=== PATIENT | male | born 1935 | race Caucasian/White ===

== ENCOUNTER 2021-03-01 09:58 | Emergency (ER) | payer OTHER ==
--- OUTSIDE RECORDS SUMMARY | 2021-03-01 10:01 | XMS REPORT | Clinical Summary ---
:1935 Author Organization [facility] Address [address] [place] [address] Care Team Providers Name Role Phone Matthew Chaves MD Primary Care Provider Venkatesh Sotelo MD Unavailable Unavailable Fly Roberts NP Unavailable MD Saurav Unavailable Ariel Burch MD Unavailable Matthew Chaves MD Unavailable Monty Scott Unavailable MD Wilman External Follow Up C Allergies Active Allergy Reactions Severity Noted Date Comments Iodinated Contrast Media 12/11/2015 Iodine 03/18/2016 Medications Medication Sig Dispensed Refills Start End Date Status Date aspirin 81 mg Chew 81 mg 0 Activ e chewable tablet daily. atorvastatin calcium Take 140 mg 0 Active (ATORVASTATIN ORAL) by mouth daily. clopidogrel (PLAVIX) Take 75 mg by 0 Active 75 mg tablet mouth daily. fenofibrate Take 145 mg 0 Active nanocrystallized by mouth (TRICOR) 145 mg daily. tablet metoprolol succinate Take 50 mg by 0 Active (TOPROL XL) 50 mg 24 mouth daily. hr tablet methimazole Take 1 tablet 3 Acti ve (TAPAZOLE) 5 mg by mouth 6 tablet daily. pantoprazole TAKE 1 TABLET 3 Act divya (PROTONIX) 40 mg EC BY MOUTH 7 tablet EVERY DAY TRAMADOL HCL Take by 0 Active (TRAMADOL ORAL) mouth. mupirocin (BACTROBAN) Apply 22 g 1 Active 2% topically to 0 ointmentIndications: affected Basal cell carcinoma area(s) twice of nose daily. mupirocin (BACTROBAN) Apply 22 g 1 Active 2% topically to 1 ointmentIndications: affected Basal cell carcinoma area(s) twice of cheek daily. MELATONIN ORAL Take by mouth 0 06/08/20 D iscontinued at bedtime. 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 Encounters Date Type Specialty Care Team Description 09/28/2020 Procedure visit Chance Alexis c arcinoma MD Maryse of cheek 09/28/2020 Travel 09/25/2020 Telephone Stacy Perez RN 09/25/2020 Orders Only Stacy Perez Basal cell car cinoma RIC Meeks of cheek (Prima ry Dx) 09/19/2020 Orders Only Infectious Diseases Shandra Kathleen, SARS -CoV-2 MD vaccination 09/15/2020 Office Visit Ramon Stovall Actinic keratos is (Primary Dx); MD Maryse Basal cell carc inoma of nose; Neoplasm of unc ertain behavior of other specified site 09/15/2020 Travel 06/16/2020 Clinical Support Ramon Stovall Basal cell carcinoma MD Maryse of nose 06/16/2020 Travel 06/08/2020 Procedure visit Ramon Stovall, Neoplasm of uncertain behavior, site unspecified; MD Maryse Basal cell carc inoma of nose 06/08/2020 Travel 06/05/2020 Clinical Support Infectious Diseases Papito Stovall for observation for other suspected exposure to biological agent ruled out (Primary Dx); MD Maryse Basal cell carcinoma of nose Cherry Castro MA 06/05/2020 Travel 05/25/2020 Telephone Stacy Perez RN 05/24/2020 Telephone Stacy Perez RN 05/11/2020 Orders Only Stacy Perez Basal cell car cinoma RIC Meeks of nose (Primar y Dx) 05/04/2020 Telephone Stacy Perez RN 04/27/2020 Lab Requisition Forest Meredith MD Howard, Martin L, MD 04/24/2020 Orders Only Stacy Perez Neoplasm of un certain RIC Meeks behavior, site unspecified (Pr imary Dx) 04/24/2020 Orders Only Sybil Lopez RN after 03/01/2020 Medical History Medical History Date Comments Basal cell carcinoma of scalp 02/2013 Social History Tobacco Use Types Packs/Day Years Used Date Former Smoker Quit: 1962 Smokeless Tobacco: Never Used Alcohol Use Standard Drinks/Week Comments No 0 (1 standard drink = 0.6 oz pure alcoho l) Sex Assigned at Date Recorded Not on file Job Start Date Occupation Industry Not on file Not on file Not on file Last Filed Vital Signs Vital Sign Reading Time Taken Comments Blood Pressure 169/84 09/28/2020 2:04 PM CDT Pulse 68 09/28/2020 2:04 PM CDT Temperature 36.4 C (97.5 F) 09/28/2020 2:04 PM CDT Respiratory Rate 18 09/28/2020 2:04 PM CDT Oxygen Saturation 96% 09/28/2020 2:04 PM CDT Inhaled Oxygen Concentration - - Weight - - Height - - Body Mass Index - - Plan of Treatment Date Type Specialty Care Team Description 04/04/2021 Office Visit Ashlyn Alexis MD [address], [place] [address] [phone] Procedures Procedure Name Priority Date/Time Associated Comments Diagnosis PATHOLOGY BIOPSY Routine 09/15/2020 12:10 Basal cell Results for this INTERPRETATION PM [employer]GE [employer] carcinoma of nos e procedure are in Neoplasm of the results uncertain behavior section. of other specified site COVID-19 (SARS-COV-2) Routine 06/05/2020 11:50 Encounter for R esults for this PCR-ASYMPTOMATIC [facility] AM [employer] observation for aleida alberts are in other suspected the results exposure to section. biological agent ruled out PATHOLOGY OUTSIDE Routine 04/14/2020 Results fo r this INTERPRETATION procedure are in the results section. after 03/01/2020 Results Pathology Biopsy Interpretation (09/15/2020 12:10 PM BRIDGE [employer]ER) Pathologist Sig nature Submitted Clinical 4 mm papule right cheek [facility] History Diagnosis A: Right cheek, skin shave: [facility] Electronically signed BASAL CELL CARCINOMA, NODULA R PATTERN WITH FOCAL SQUAMOUS DIFFERENTIATION, PRESENT AT TISSUE EDGES. by Prasanna Silva MD on CAT/PG 09/18/2020 at 11 :35 AM Gross Description A: [facility] Skin, 4 mm papule right edwin k: Consists of a skin shave that is 0.6 x 0.3 cm, no lesion is grossly identified, inked blue and bisected, entirely submitted in A1. XZ Disclaimer "Some tests reported [facility] here may have been developed and performance characteristics determined by [facility]. These tests have not been specifically cleared or approved by the U.S. Food and Drug Administration. If applicable, controls were reviewed and showed appropriate reactivity." Specimen Tissue - Skin Performing Organization Address City/State/ZIP Code Phon e Number [facility] [place] [address] [address] COVID-19 (SARS-CoV-2) PCR-Asymptomatic [facility] (06/05/2020 11:50 AM BRIDGE ATT[employer]ER) COVID19 (SARS Not Detected Not Detected [facility] CoV-2) Result Comment: [facility] CENTER This test is a qualitative r everse-transcriptase polymerase chain reaction (RT- PCR) developed for the Linda [employer]SHV[employer] system and intended for the detection of SARS CoV-2 RNA in human nasopharyngeal specimens from patients who meet COVID-19 clinical and/or epidemiological crite pepito. This assay has been approved by the FDA for use only under Emergency Use Authorization (EUA) in laboratories that have been CLIA-certified to perform moderate-complexity and high-complexity tests. The performance characteristics of this assa y were verified by the Microbiology Laboratory at [facility], CLIA Accreditation #: [id number] and CAP Accreditation #: [id number]. Results must be interpreted within the context of all relevant clinical and laboratory findings and shou ld not form the sole basis for a diagnosis or treatment decision. "Presumptive Positive" resul ts are due to partial amplification of SARS-CoV-2 targets and indicates low amounts of virus present in the specimen at or near the limit of detection. Regardless, individuals with "Presumptive Positive" results should be managed per institutional gu idelines as individuals positive for SARS-CoV-2 virus, including use of appropriate infection control protocols. Internal controls are includ ed to assess for possible amplification inhibitors. If inhibition is detected, testing is repeated and if inhibition is confirmed the specimen is resulted as "Invalid". When an "Invalid" result occur, it is recommended to wait 3 days before submitting a new specimen for amber ting if clinically indicated. COVID19 SARS CHIEF OF STAFF DOCTOR Swab [facility] Source CANCER CENTER COVID19 SARS Pre-Out of OR [facility] Indication Procedure CANCER CENTER Specimen Nasopharyngeal Swab Performing Organization Address City/State/ZIP Code Phon e Number [facility]CER Unless otherwise noted, [place] [address] [place] all lab tests performed by: Division of Pathology and Laboratory Medicine [address] [place] [address] Pathology Outside Interpretation (04/14/2020) Materials Accession#, Stained, Block, Unstained Collected Receiv ed [facility] Received A. [id number], 11 SS, 0 BLOCK, 0 USS B. [id number], 0 SS, 1 BLOCK, 0 USS 04/14/2020 04/14/2020 04/28/2020 05/02/2020 Diagnosis A. Eleven outside slides and one paraffin block ([id number], 2xH&E: A1, 9xIHC: p63, SOX10, CK AE1/AE3, CKHMW, CK7, RCC1, PAX8, CD10 , collected on 04/14/2020) Nasal dorsum, skin shave: [facility] Idania ctronically signed by Tera pearson CONSISTENT WITH BASAL CELL C ARCINOMA WITH CLEAR CELL FEATURES, PRESENT AT TISSUE EDGE Teto Silva MD on Associated actinic keratosis, present at tissue edges. 05/08/2020 at 10:35 See comment AMPreliminary r esult electronically CAT/PG signed by Tera Silva MD on 05/01/2020 at 5:52 PM Comment A. Sections show a nested pr oliferation of clear cells demonstrating moderate atypia and scattered mitotic figures with overlying epidermal ulceration. An associated actinic keratosis is present. The garcía [facility] bmitted immunohistochemical studies, reviewed here, show that lesional cells are positive for p63, CKAE1/AE3, and CKHMW and negative for CK20, CK7, SOX10, RCC, PAX8, and CD10. Additional materials were re quested to perform immunohistochemical studies. The tumor cells are positive for BerEp4, focally positive for POLLY, and negative for adipophilin and CEA. The overall findings are interpreted as consisten t with basal cell carcinoma with clear cell change. This case was studied and di scussed at the dermatopathology faculty conference. Acid Purification Equipment Operator(s) VGP, JLC, DI, PN, PPA [facility] Disclaimer "Some tests reported here [facility] may have been developed and performance characteristics determined by [facility]. These tests have not been specifically cleared or approved by the U.S. Food and Drug Administration. If applicable, controls were reviewed and showed appropriate reactivity." Specimen Tissue Tissue Performing Organization Address City/State/ZIP Code Phon e Number [facility] [place] [address] [address] after 03/01/2020 Insurance Payer Benefit Plan / Subscriber ID Effective Dates Phone Addre ss Type Group AETNA MEDICARE AETNA MEDICARE [id number] 2013-Present Medicare PPO
--- OUTSIDE RECORDS SUMMARY | 2021-03-01 10:02 | XMS REPORT | Continuity of Care Document ---
:1935 Author Organization [facility] t Address [address] [place] [place] [address] Care Team Providers Name Role Phone [phone] Primary Care Physician Unavailable SYSTEM, NOT IN Attending Clinician Unavailable Caitlyn Huston MD Attending Clinician SCOT Attending Clinician Unavailable Scot LEWIS Attending Clinician Constantino Padilla RN Attending Clinician Unavailable Yashira LEWIS, S. Attending Clinician Hever LEWIS Attending Clinician Matthew THOMSON Attending Clinician Unavailable Monty Meredith MD Attending Clinician Christ Busby MD Attending Clinician Beatriz Unger RN Attending Clinician Unavailable Payers Payer Name Policy Type Policy Effective Date Expiration Date Sour ce Number AETNA MEDICAREAETNA [id number] 2013 [place] MEDICARE HMO/PPO 00:00:00 [facility] [id number] AETNA MEDICARE PPO [id number] 2013 00:00:00 Problems Condition Condition Condition Status Onset Resolution Last Treating Co mments Source Name Details Category Date Date Treatment Clinician Date Stable Stable Disease Active [facility] angina angina 7-12 st 00:00: Hospita 00 l 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 0-17 st nodules nodules 00:00: Hospita 00 l Graves' Graves' Disease Active 2015-07 [facility] disease disease 0-06 st 00:00: Hospita 00 l Hyperlipid Hyperlipid Disease Active 2015-07 M ethodi emia emia 006 st 00:00: Hospita 00 l Erythrocyt Erythrocyt Disease Active 2015-07 M ethodi osis osis 006 st 00:00: Hospita 00 l Coronary Coronary Disease Active 2015-07 [facility] di artery artery 0-06 st disease disease 00:00: Hospita involving involving [place] coronary coronary artery artery Hypertensi Hypertensi Disease Active 2015-07 M ethodi on on 006 st 00:00: Hospita 00 l Basal cell Basal cell Disease Active M D carcinoma carcinoma 9-12 S[facility] of skin of of skin of 00:00: n scalp scalp 00 Seborrheic Seborrheic Disease Active 2013-07 M D keratosis keratosis 0-13 Sg rso 00:00: n 00 Actinic Actinic Disease Active 2013-07 MD keratosis keratosis 0-13 Sg rso 00:00: n 00 Basal cell Basal cell Disease Active M D carcinoma carcinoma 7-23 [facility] of ear of ear 00:00: n 00 GERD GERD Disease Active Method[facility] (gastroeso (gastroeso st phageal phageal Hospita reflux reflux l disease) disease) Diverticul Diverticul Disease Active M ethodi osis osis st Hospita l Dysphagia Dysphagia Disease Active Met hodi [facility]ospita l Colon Colon Disease Active [facility] polyps polyps st Hospita l Family Family Disease Active Methodi history of history of st colon colon Hospita cancer cancer l Stricture Stricture Disease Active Met hodi esophagus esophagus st Hospita l Allergies, Adverse Reactions, Alerts Allergy Allergy Status Severity Reaction(s) Onset Inactive Treating Comm ents Source Name Type Date Date Clinician iodine DA Active CO [facility] 3[facility]12 [place] 00[facility] 00 dic Hospita l iodine DA Active CO 2017-07 [facility] 0-29 [place] 00:[facility]ope 00 dic [facility]ospita l iodine DA Active CO [facility] 3- [place] 00:00: Orthope 00 dic Hospita l Iodine Propensi Active Methodi ty to [address] adverse 00:00: Hospita reaction 00 l s to drug Family History Family Member Diagnosis Comments Start Date Stop Date Source Natural father Lung cancer [facility] Natural father Other [facility] Natural mother Colon cancer [facility] Natural mother Heart attack [facility] Social History Social Habit Start Date Stop Date Quantity Comments Source History of Current smoker MD Jennifer soliman tobacco use Tobacco use and 2018-01-15 2018-01-15 Former user [facility] t exposure 00:00:00 00:00:00 Hospital Alcohol intake 2018-01-15 2018-01-15 Current [facility] 00:00:00 00:00:00 non-drinker of Hospital alcohol (finding) Sex Ass[birth year] At [birth year] [facility] 00:00:00 00:00:00 [facility] Smoking Status Start Date Stop Date Source Former smoker 2018-01-15 00:00:00 2018-01-15 00:00:00 [facility] Medications Ordered Filled Start Stop Current Ordering Indication Dosage Frequency Signature Comments Components Source Medication Medication Date Date Medication? Clinician (SIG) Name Name pantoprazol Yes [id number] TAKE 1 Methodi e 7-[address] (PROTONIX) 00:00: MOUTH Hospit a 40 MG EC 00 EVERY DAY l tablet aspirin 81 Yes 81mg Chew 81 mg M D mg chewable 3-25 daily. Joaquim o tablet 16:17: n 32 atorvastati Yes 140mg Take 140 M D n calcium 3-25 mg by Anderso (ATORVASTAT 16:17: mouth n IN ORAL) 32 daily. clopidogrel Yes 75mg Take 75 mg (PLAVIX) 75 3-25 by mouth Sg rso mg tablet 16:17: daily. n 32 fenofibrate Yes 145mg Take 145 M D nanocrystal 3-25 mg by Anderso lized 16:17: mouth n (TRICOR) 32 daily. 145 mg tablet metoprolol Yes 50mg Take 50 mg M D succinate 3-25 by mouth Joaquim o (TOPROL XL) 16:17: daily. n 50 mg 24 hr 32 tablet TRAMADOL Yes Take by HCL 3-25 mouth. Anderso (TRAMADOL 16:17: n ORAL) 32 mupirocin Yes Basal cell Apply M D (BACTROBAN) 3-25 carcinoma topically Anderso 2% ointment 00:00: of cheek to n 00 affected area(s) twice daily. methIMAzole Yes [id number] 5mg Q.[id number] TAKE 1 [facility] (TAPAZOLE) 3 [id number] TABLET (5 st 5 MG tablet 00:00: 3W MG TOTAL) H ospita 00 BY MOUTH 3 l (THREE) TIMES A WEEK. ON FRIDAY, FRIDAY, FRIDAY methIMAzole 2019-07 No [id number] 5mg Q.[id number] TAKE 1 [facility] (TAPAZOLE) 08-27 [id number] TABLET (5 st 5 MG tablet 00:00: 00:00 3W MG TOTAL) Hospita 00 :00 BY MOUTH 3 l (THREE) TIMES A WEEK. ON FRIDAY, FRIDAY, FRIDAY MELATONIN 2019-07- No Take by ORAL 2- 12-03 mouth at Anderso 17:12: 00:00 bedtime. n 44 :00 mupirocin 2019-07 Yes Basal cell Apply M D (BACTROBAN) 2-03 carcinoma topically Anderso 2% ointment 00:00: of nose to n 00 affected area(s) twice daily. pantoprazol 2019-07 No [id number] TAKE 1 Methodi e 0-[address] (PROTONIX) 00:00: MOUTH Hospit a 40 MG EC 00 EVERY DAY l tablet methIMAzole 2018-07- No [id number] 5mg Q.[id number] TAKE 1 [facility] (TAPAZOLE) 07-21 [id number] TABLET (5 st 5 MG tablet 00:00: 00:00 3W MG TOTAL) Hospita 00 :00 BY MOUTH 3 l (THREE) TIMES A WEEK. ON FRIDAY, FRIDAY, FRIDAY pantoprazol No [id number] TAKE 1 Methodi e 9-[address] (PROTONIX) 00:00: MOUTH Hospit a 40 MG EC 00 EVERY DAY l tablet mupirocin 2017-07- No Squamous Apply (BACTROBAN) 07-20 1203 cell topically An derso 2% ointment 00:00: 00:00 carcinoma to n 00 :00 of skin of affected right ear area(s) and daily. external Apply with auricular dressing canal changes aspirin Yes 81mg QD Take 81 mg Meth josey (ECOTRIN) 7-[address] 81 MG 16:42: daily. Hospita enteric 48 l coated tablet famotidine Yes 40mg QD Take 40 mg M ethodi (PEPCID) 40 7-[address] MG tablet 16:42: nightly. Hosp laurie 48 l sucralfate Yes 1g Q.5D Take 1 g Met hodi (CARAFATE) 7-[address] 1 gram 16:42: (two) Hospita tablet 48 times a l day before meals. With breakfast and dinner traMADol Yes 50mg Q8H Take 50 mg Met hodi (ULTRAM) 50 -[address] mg tablet 16:42: every 8 Hospi ta 48 (eight) l hours as needed for moderate pain. gabapentin 2019- No TAKE 1 (NEURONTIN) 11-12 CAPSULE BY A nderso 100 mg 00:00: 00:00 MOUTH n capsule 00 :00 THREE TIMES A DAY pantoprazol Yes TAKE 1 MD jeffery 9-10 TABLET BY Jennifer (PROTONIX) 00:00: MOUTH n 40 mg EC 00 EVERY DAY tablet fenofibrate Yes 145mg QD Take 145 M ethodi (TRICOR) 8-[address] 145 MG 00:00: mouth once Hospi ta tablet 00 daily. l clopidogrel Yes 75mg QD Take 75 mg Methodi (PLAVIX) 75 - by mouth st mg tablet 00:00: once Hospita 00 daily. l metoprolol Yes 50mg QD Take 50 mg M ethodi succinate -[address] XL 00:00: once Hospita (TOPROL-XL) 00 daily. l 50 MG 24 hr tablet atorvastati Yes 40mg QD Take 40 mg Methodi n (LIPITOR) 01-[address] 40 MG 00:00: once Hospita tablet 00 daily. l methimazole 2016-0 Yes 1{tbl} Take 1 (TAPAZOLE) 6-27 tablet by Sg reed 5 mg tablet 00:00: mouth n 00 daily. Immunizations Ordered Immunization Filled Immunization Date Status Commen ts Source Name Name PFIZER COVID-19 MRNA 2020-08-11 Completed Meth odist VACCINATION 00:00:00 [facility] PFIZER COVID-19 MRNA 2020-07-21 Completed Meth odist VACCINATION 00:00:00 [facility] Influenza Trivalent 2014-03-10 Completed Metho dist 00:00:00 [facility] Pneumococcal 2009-07-07 Completed [facility] Polysaccharide 00:00:00 [facility] Zoster 2008-07-07 Completed [facility] 00:[facility]:00 [facility] Vital Signs Vital Name Observation Time Observation Value Comments Source Systolic blood pressure 2020-09-28 19:04:49 169 mm[Hg] MD Rasmussen Diastolic blood pressure 2020-09-28 19:04:49 84 mm[Hg] MD Rasmussen Heart rate 2020-09-28 19:04:49 68 /min MD Castellano son Body temperature 2020-09-28 19:04:49 36.39 Linh MD Gael capps Respiratory rate 2020-09-28 19:04:49 18 /min MD Gael capps Oxygen saturation in 2020-09-28 19:04:49 96 /min MD Rasmussen Arterial blood by Pulse oximetry Procedures Procedure Date / Time Performing Clinician Source Performed THYROID STIMULATING 2020-10-03 19:39:00 [facility] HORMONE T4, FREE 2020-10-03 19:39:00 [facility] T3 2020-10-03 19:39:00 [facility] PATHOLOGY BIOPSY 2020-09-15 18:10:00 Maryse Ellison MD INTERPRETATION COVID-19 (SARS-COV-2) 2020-06-05 17:50:00 Светлана Lowry MD PCR-ASYMPTOMATIC PATHOLOGY OUTSIDE 2020-04-14 00:00:00 Brant Busby MD on INTERPRETATION Plan of Care Planned Activity Planned Date Details Comments Source Future Scheduled Test SHINGLES VACCINES (#2) [facility] [code = SHINGLES VACCINES (#2)] Future Scheduled Test INFLUENZA VACCINE [facility] [code = INFLUENZA VACCINE] Encounters Start End Encounter Admission Attending Care Care Encounter Source Date/Time Date/Time Type Type Clinicians Facility Department ID 2020-04-24 Outpatient CORA, SAJI LENNON [id number] 07:24:24 PROVIDER Joaquim soliman 2021-01-06 2021-01-06 Refnick Betzaida, 1.2.840.1 [id number] Method[facility] 00:00:00 00:00:[address] [place] 3.430.2.7 Hospit a .3.867951 l .8 2020-09-28 2020-09-28 Outpatient JOSE CARLOS ELLISON MDA MDA [id number] 11:01:54 14:09:02 MARYSE soliman 2020-09-24 2020-09-24 Orders Yashira, 1.2.840.1 [id number] Methodi 00:00:00 00:00:00 Only Saige S. 44037.1.[address] 3.430.2.7 Hospit a .3.558081 l .8 2020-09-23 2020-09-23 Refill Yashira, 1.2.840.1 [id number] Methodi 00:00:00 00:00:[address] 3.430.2.7 Hospit a .3.149297 l .8 2020-08-11 2020-09-18 Clinical 1.2.840.1 [id number] Methodi 09:57:43 15:47:[address] 3.430.2.7 Hospit a .3.325442 l .8 2020-09-15 2020-09-15 Outpatient JOSE CARLOS ELLISON MDA MDA [id number] 10:45:36 12:16:18 MARYSE soliman 2020-08-11 2020-08-11 Outpatient [facility] [id number] [address] [place] [address] 00:00:00 00:00:[address] 2020-07-21 2020-07-21 Clinical 1.2.840.1 [id number] Methodi 09:39:47 09:52:[address] 3.430.2.7 Hospit a .3.125356 l .8 2020-07-21 2020-07-21 Outpatient [facility] [id number] [address] [place] [address] 00:00:00 00:00:[address] 2020-07-18 2020-07-18 Travel 1.2.840.1 1.2.673.714 [id number] Methodi 00:00:00 00:00:[address] 3.430.2.7 0.2.7.3.698 Ho spita .3.241055 084.8 l .8 2020-06-26 2020-06-26 Tomás Ac 1.2.840.1 [id number] Methodi 00:00:00 00:00:[address] 3.430.2.7 Hospit a .3.812769 l .8 2020-06-16 2020-06-16 Outpatient JOSE CARLOS ELLISON MDA MDA [id number] 08:42:29 15:24:43 MARYSE soliman 2020-06-08 2020-06-08 Outpatient SAJI ELLISON MDA [id number] 10:45:51 15:00:41 MARYSE soliman 2020-06-05 2020-06-05 Outpatient SAJI ELLISON MDA [id number] [id number] 11:39:38 11:39:38 MARYSE soliman 2020-04-06 2020-04-06 Refnick Huston 1.2.840.1 [id number] Methodi 00:00:00 00:00:[address] [place] 3.430.2.7 Hospit a .3.042005 l .8 Results Test Description Test Time Test Comments Results Result Comments Source T4, free 2020-10-04 05:16:00 Test Item Value Reference Range Interpretation Comme nts T4, free (test code = 3024-7) 1.3 ng/dL 0.8-1.8 RAC (test code = RAC) [facility] [id number] 05:16:00 Test Item Value Reference Range Interpretation Comments TSH (test code = See_Comment [Automated message] The 3016-3) system which ge nerated this result transmit margarita reference range : 0.40 - 4.50 mIU/L. The reference range was not u sed to interpret this result as normal/abnormal . RAC (test code = RAC) [place] [id number] 05:16:00 Test Item Value Reference Range Interpretation Comments T3 (test code = 3053-6) 119 ng/dL 76-181 RAC (test code = RAC) [facility] [id number] 16:35:00 Test Item Value Reference Range Interpretation Comments Submitted Clinical History b0ssuFFeEBSgpZD8TwX (test code = 50695) gBEHgb8yqe4JcqQMimO HdLXxbkMTwyxVpld25l IB0eU85HQ8lWIKlNjP9 EFDqtuS9Jxx8TBEyGIL sgLMkN170t5spv1jofj AsgUB7ILVmBKU1AZops aMauqV8XJmubJPpIgG6 W86uxOTqKViklJClumh sysEqGQHeD3LbTDHzNW BgeG0onQBpdPszOEXnG 9z9PTOfOBCiHOUaycqw TJUrRBNrX5HcTBWvDVF hcn0= Diagnosis (test code = 34) k5iwtELlGJQdhDQ1SlO gFHNlj1jpo1XpkILnvR GyTIaduCLrisYhws33c AQ3mK32NV9bGTDfMeY9 UUAqrbC7Qky9NTJeUHN lgVTjU734t2els3rkpo OkvWI6sNxfCQOeRIIqT WluXGZzMjAgQTogUmln pGAmR8wjYToaVOEhmP3 ez2mevuN5GYDksfcveG llZDlscT96RiUmPoNKE YzpF5WHSSQGJZFYZB5R BZVeUZ4VGBICHZQfXIJ UVEVSTiBXSVRIIEZPQ0 OULZSHFXZSD9COBHHVS kZFUkVOVElBVElPTiwg SGOLM4AVXZTXKCASGNB TVUUgRURHRVMuXHBhcl xwYXJkXHBhciBDQVQvU EdccGFyfQ== Gross Description (test z2dioEWvTEVrzOMFHPQ code = [id number]) wMVxhbnNpXHNwbHRwZ3 EuxldiSIxzBC5xUN6bu LecbVOiwRRjTB2JWBJn ZmYxXHBhcGVydzEyMjQ vFZCyuVSnoVP1ETHkPB 1hcmdsMTgwMFxtYXJnc uS0MSTgwRWzU0BjFTQh WS5yyqyyFVU2XBuqeF0 jyeCOHslhZr8ekKYizW tcZjFcZmNoYXJzZXQwX WTzrKjjIKKgZZx7fL4A GzxoOGC5WQKUCjqhXLN cAL6Pb9eqCFDsnUToQF G5IEewyNCzCSTvLSEoW Nf5UNJfWLpfgBScNF9r zLjpRcdawTott7CafSE cXGlkIDUxMDAyIFxcZG DoSU7AVpFdVWHlRQx9F pvcNAj9REc0IU4NTcPe IKFfEUg0IJH6USKwRCx 8UDszGL0VIJW7NfP7Kg C1CXM8BEqsFaVvYWAhA iBcXGYgQXJpYWwgXFxm cyAxMCBcXGZiIFxcZmw yXVkaM05tgApytD2nAc ztjkSgFGV2RHGchgIXW lxwbGFpblxlcGljTmVz dERvYzEgDQpcbHRycGF yXGxpbjBccmluMCANCl xsdHJjaFxiXGZzMjAgU 3xupbbpDMMquDPeROU5 qMEscqqaiYXdK2bqBTv 6TCVwCSKKl61waMJ3ff TgYiApWGIziK1qm6qwh mUgdGhhdCBpcyAwLjYg zOKmEoFxJ42tDT9rQFv ko9lojnPthzDmbh2ps5 i6EMpkNH42tICoJOOhX Ojro3NzUFEehBJfJS8y PAHer0VdaVPoWWEwvpP tyrFoiFVldZBzvCF5UV MxeV7lTYIuUWFouFYbx RDncVflAyyheYF3VJve NirkrJ7khAPFRBBOIaj XIdlvjpNfHR7RXA7IWu ZVWX69AnFeBDO0ENtWY 4BKxPE2Ave5AEi6hKtv ZmxkcnNsdCBcJzFDfX1 CDffaXqkcvXG4HLikHr yrbZ4zyEUGGQHSGhxWG gnjaiCjCI2JPX2WMF5F jCBkGIG4oFC7OCCQIaf siKT5cZT2wH70RPVqXR XxsPFlDTffA028XRMkF UrxJXo1dzUzISVhYaTn YDtsbOagjX6xGOPoO64 ob5DDo8XcGEWsROddi7 tenKwmy1ZcuJIvZXadW IZpgVNqMBvjfE1eFgVd y3wxwIe9ZQdpdwW3PIE ssl1DJxofhR2fWbSrc9 qscRq8UVEHChndzeI7p 4izgPbbg6MmlHEuXY9G Cn0= Disclaimer (test code = u3yufFMjCJQywTMlDfK 9844) xOOXmJXMwa7ufTSRciR FuZzEwMzNcZnRuYmpcd GTqDQEzOeWxq1plk574 uQYgy2urPMUsXpM3aAM nKPFwpYWuZ463URAtJJ ttk9qgc6OxMDQntTQdo 3K8CFKNartqdIu7yMzs V63kh2A3WnflO6ivQWP wAEMjN8TePR7tHSWfHh w2ACE6NCX5ZRKwFSXjW 9MfFD7uXPVylDKqNGh5 q2qysIqwVAKcKTG6c5q mOVbsjhPbBI2jgc1ojR q5o7brjsXhOPMcOKXul SAJYIGyL6RqzRruUh9a uHj9rOrnHhugHBI8Hbr 7XF9tob11kyu1mAfqCV SzbqktXeM0TPqbJVNse iumSUn3CLvfTRClqQE4 OCJwpBTgM0ZiYSBeRA1 afwg3VHD2FIyrBCCxMr Y0YEWsxJYmETSdsJazZ Kzlt709BSA1UhStAO0m C0Hqb6F4aO6cqEUoIXX vzFQxYvTnYGSwhz1imE IzSUdyd6SlSEY1ooP9x TMibLFrINFbPJ54Hdno q2XyZiacTSQ9PUWbutY ql4Loi2qvTnGlsqMtD8 nqH5XdAXQjYBTbEYBaW jSjpoCav6Xrl3MooCUf qSy7q0htUBRhJWBwaPb qf6ceWYM4PTNxG8Q5fD Jzx3xkYGppXEWkqIC6k dG4CWRaiBAqE3XkjQ2x BIOnEC1azsq7i5ahQKO 0EBelNMKmTaY0ymJ5PJ BcaGVhZGVyeTcyMFxmb 585QSR8WjYeUYOok8Mp O9XzgMicO70toVouK44 rYHTdxTkxoK7ehSuxsW 5cZjBcZnMyNFxxbFxwb EOxnhrxFGpvfrO9VZex ulweLOPcYEqtJ5tvVbS jCJNclQlfOMvni0SbQS GqXSQcFtxlnoC5XLRNl 62tOBTcn1OhSJTkxZ8p pORaSPhwlkVaxJE4TQp hdmUgYmVlbiBkZXZlbG 7sBBRoOB6iKNNhgaNuy v9dnjBvUAOtIVVtH1Ji cmlzdGljcyBkZXRlcm1 ekmUiNZZ8IAGYGV6TGL DjBGBft09eECEzqCfyp B9zaGLrwuFgGZXmw6Xa nQ7tnSOFCZKpD9iiAU4 dQHlnb4XdfMSylZTfsP X8KYAbh4XuPbSzbsDih VVoiZAhL7DkcXgnR4cy SJUcEUJsxsPqhCCbk0I eBUJyoKF9xXXwLZ2MPg VSb56nIQKwBNSVofZiV DUixRaypIR0vpS2mI3m LiBJZiBhcHBsaWNhYmx vUDFyz220rc0kumQ7CT UlHANccbqsl6GjSKKwF LZmrC17LXIeCLUqcj5x neurdARrioXmK1Wtuls 6nR2lLMHsECoqIJXwJX ZzMjJcbGFuZzEwMzNca GljaFxmMVxkYmNoXGYx BMgpH3ntBiQrFzOcNik wYXJ9 MD RasmussenCOVID-19 (SARS-CoV-2) PCR-Asymptomatic [id number] 07:06:06 Test Item Value Reference Range Interpretation Comments COVID19 (SARS Not Detected Not Detected This test is a CoV-2) Result qualitative (test code = reverse-transcr iptase 01907-9) polymerase wilder n reaction (RT-PC R) developed for t he [employer] ASHVIN 680 0 system and inte nded for the detecti on of SARS CoV-2 RNA in human nasophary ngeal specimens from patients who me et COVID-19 clinic al and/or epidemiological criteria. This assay has been approv ed by the FDA for use only under Emergency Use Authorization ( EUA) in laboratories that have been CLIA-certified to perform moderate-comple xity and high-comple xity tests. The performance characteristics of this assay were verified by the Microbiology Laboratory at [facility] [place], CLIA Accreditation # : [id number] and CAP Accreditation # : [id number]. Result s must be interpreted within the context of all relevant clinic al and laboratory find ings and should not form the sole basis for a diagnosis or treatment decis ion. "Presumptive Positive" resul ts are due to partial amplification o f SARS-CoV-2 targ ets and indicates l ow amounts of viru s present in the specimen at or near the limit of detection. Regardless, individuals wit h "Presumptive Positive" resul ts should be manag ed per institutional guidelines as individuals pos itive for SARS-CoV-2 virus, including use o f appropriate inf ection control protoco ls. Internal contro ls are included to ass ess for possible amplification inhibitors. If inhibition is detected, testi ng is repeated and if inhibition is confirmed the specimen is res ulted as "Invalid". W hen an "Invalid" resul t occur, it is recommended to wait 3 days before submitting a ne w specimen for te sting if clinically indicated. COVID19 SARS OUTPATIENT RECEPTIONIST Swab Source (test code = 98308) COVID19 SARS Pre-Out of OR Indication (test Procedure code = 79958) MD RasmussenPathology Outside [id number] 16:35:00 Test Item Value Reference Range Interpretation Comments Materials Received (test o1enyWLfKNSzvFLdCoLz code = 9973) WQWhTDTwh3weVCFguGGi ZzEwMzNcZnRuYmpcdWMx AGIaMmMxt5vbx924qHOh a7inCVShWaU8zYDlDJRc vSNxT260VNEqNFzmr3zo k4OfLXFawZMks6I7WXCC ywfwmLs4eGfvK19jw6Q6 MdfkC5gzSNOdHPCcX7Qo MN9oEDOiUts7AHW7VHL7 WDQfJPPqS0UmWD4oGKCq mZQqLBc8u5tjbDgwWEFe VCX7y8viKJqhnoPsDY6r cy3pqDl0u3pnckQbNZTh CQPeoHIGNFGsY4MyrCfs Fg2nkGw6bDrwWoziJZD4 Qkw0DZ4trt40uea4uXcb PNJqgzozKiP3BAecBFMw pfozBFj6KTwrRTHadLhy MFxtYXJncjcyMFxtYXJn wDP3VZNlwZPcC4MpKXWj NTjjTKHivhk3QgVoQr4s jIDvdVshCSxjc7fxj5yb qPWxDzl9DMGjBrHpShro LIfvu4Xdw6fjRGDzeu1l RFW6uQMglCsel4F3hOIr RKNjeVEmgfArLSAjph78 uMCouUWxzIUcnv4cmtGb nKWupRBqJKM6pBLmtfLq ZKBoqNDvIQHoGP2veRUk ZGPxcM8lunfuBDPgNsIs ybsyQTPfxPqazfLoPy5m eGhfDKP6BGeqX9xutV6z HjS8VOxzF9pfuB0mLEj4 DJlreUF8IVLasO2rKV0t oibmi9zySbXaEI6owqvb s1upKpKjKG9qeko4q3xt LHJ7SIozMZJxKzN0odD1 NDBcaGVhZGVyeTcyMFxm r165QMB8BiCoQAMkc4Va C4YvuYdrE84eoCmjD68e SIEvtPopeN2vaBsyeG8d RbRfIhCrKFy5wg57YZc4 hfwjpNkxSMg5hrVlSWTl RPW0EMOujFYoYKYaQ1y0 rkQsXNFhBPJ1TWMpcHYu RCZfU8z1muXlELM5LEc5 cnBhZGRmdDNcdHJwYWRk YjBcdHJwYWRkZmIzXHRy hNCcpIEdaFNjsH7fbAbf GWIzxRAfsM3bOBT9KGBu cmgzMjBcdHJoZHJcbHRy nj08CPDnakKzqFIdoUgs lTYtQUG5QMZaMCFwTRVt MLV8XDRlFkRhoeAoTWwt bGJyZHJiXGJyZHJzXGJy QZY1HXVdRrOogfEqKAtu bGJyZHJsXGJyZHJzXGJy FPY9XGXwXsQivfZxQDoj bGJyZHJyXGJyZHJzXGJy ZTM4MGKzCjQukpSeUFtb bHBhZHQxMFxjbHBhZGZ0 P6mvtXKlHJGlLYyycHIb GMNeV0gagJXoXBghCDRa cGFkZmwzXGNscGFkYjBc Q2idBRCwQeHxJ9AopMf1 MDAwXGNsdmVydGFsdFxj qUZsHAL8DRBzKOGfNVSk IHV1YMDsBqAzxmRdIPnk bGJyZHJiXGJyZHJzXGJy ZZC1VIToHlWhglVuSScc bGJyZHJsXGJyZHJzXGJy CZL4SBEnItBtlkRrLIli bGJyZHJyXGJyZHJzXGJy HPD0BVTnMrGzrpVsOMqb bHBhZHQxMFxjbHBhZGZ0 W2cbqDFaBTOqKTsjkCPl OLZeC2tmwWZlZIasPVXv cGFkZmwzXGNscGFkYjBc A3vnVXNiGkJlW8NgwRe9 NjAwXGNsdmVydGFsdFxj nCVbBNK9APKnSDCrRNBv HXZ7LJLrLpLgjhBlHEpq bGJyZHJiXGJyZHJzXGJy BEV6CJTjMeLoxzQeTPnn bGJyZHJsXGJyZHJzXGJy APP7ZOQhQwRdsxZbRGks bGJyZHJyXGJyZHJzXGJy SIR9QYYtOhMgbiCxYKey bHBhZHQxMFxjbHBhZGZ0 K9ynjWMxOCFgQHvfhAGr ZBIbS9iiyCXjLUipFUMs cGFkZmwzXGNscGFkYjBc W6kdEVVxYwHvV0ZxjCn0 FyWkLOXpzxHtsY30Xnzt z9SvBPBwQAF6XCbgDDki bFxwbGFpblxmMVxmczIw OVklppzsYDPwMGrxL9gb KpLkMZGblKsbENorh3Sk XGYxXGNmMlxmczIwXGIg YMBvDXXvoT3aTnolN8To hJ4uMKzqMlylS1wuIWUo k5MqsO1zIQaadDIcpeho MVxmczIwXGxhbmcxMDMz YWrlX3nrCjXwWFKjgCln MYzdb4OaRUWlQMBzUzse weGgAIb3jhPfEPQmmFjr iJPjGLblsjOvyWifn5Xj nhPpaNlbFUFeLUr3vtOe stwahXs9rWYzhDenIWPo rQrypQ5hZqHxRlBxTFma bGFpblxmMVxmczIwXGxh fxmeNOVjUZjuB9plIsTu BBGyvEdqGKqzv7OoOJPb OJEgYduvjkIaZFUzL59f bGVjdGVkXHBsYWluXGYx XGZzMjBcbGFuZzEwMzNc aGljaFxmMVxkYmNoXGYx WEahE6ekQmXvB5BvBRUc UqTncVQfT9odV8DilKkq YXJkXGludGJsXHNzcGFy LXO4dSHcrgFirPWkmGNf DIKwBKwaVSX5zBMfzmni xOZjjnswFLlqpwH6RZQu YWluXGYxXGZzMjBcbGFu ZzEwMzNcaGljaFxmMVxk XoRdIELcYKyjT4iuCqCz A0NdCDOgTvWkFpGYKQQt aXZlZFxwbGFpblxmMVxm czIwXGxhbmcxMDMzXGhp O0slWuEsBMSkeMzbQZlt a0ZwJSVzRLYgWohtfkEp NYb4vuWrJVRulQuejJ83 Qhlqjx65FGSaw2ibAKAl Q7FobQKjWSEfhQRhNCor MDhcdHJwYWRkZmwzXHRy cGFkZHIxMDhcdHJwYWRk ZnIzXHRycGFkZHQwXHRy iJUiJMN1L3k3bvSfGQZc DEo3xaNjRMJlYjCtnHTx TTG4OGi5JlyokdY9lKGx O8n7VpvrpaLjJEujiQHx wk52BPWtvcTeoPAehQgb rGDuJKR3ONCxZXDxLMUs YMS5XOXySzTkisDzRYfr bGJyZHJiXGJyZHJzXGJy NTM4OZSxVbCudbLrWWwv bGJyZHJsXGJyZHJzXGJy GYI6CBLyLqUedgDeELvr bGJyZHJyXGJyZHJzXGJy HTN1GBVjWdRhphTaVHey bHBhZHQxMFxjbHBhZGZ0 L9jbnLKjTVEfYBkloTSw GJUrP0ysqHJtCQqaNXZv cGFkZmwzXGNscGFkYjBc M9moGQHvWdWwS8PazUx7 MDAwXGNsdmVydGFsdFxj vQYoWFH8NMWsZHHgXGVj FSA5KLTmPgSjzpUjKBpl bGJyZHJiXGJyZHJzXGJy SAV4OGPaYqJzabEnGGkj bGJyZHJsXGJyZHJzXGJy HXM6GMCcVgXdquUcVDfs bGJyZHJyXGJyZHJzXGJy EAG6LWAvPeNednCaXErr bHBhZHQxMFxjbHBhZGZ0 M4vzoUObCPXwMGkruYXp BOYuY7rsjTTqVLirYLGm cGFkZmwzXGNscGFkYjBc P8odJIZoPqWdV0RhoNg3 NjAwXGNsdmVydGFsdFxj tKXdJKJ0IQCeQGUhKEHc GNG6BTVsKtWcfxDjQLvi bGJyZHJiXGJyZHJzXGJy GFE2FCDjWjRzslFqCTsl bGJyZHJsXGJyZHJzXGJy RSW8PVHhDaZqfbCzXGhd bGJyZHJyXGJyZHJzXGJy PRP9JUIfJjMkikIeZOcy bHBhZHQxMFxjbHBhZGZ0 A1dlxCXqRKHtGPpdnUMf MXLyL8ngbXGtEHyhYGFn cGFkZmwzXGNscGFkYjBc G7qvCMGtUmPwX9NgdVy4 RpIwSYQakvZzcR81Ctoa k9RsZFUtCKT9HVagHTqx bFxwbGFpblxmMFxmczI0 XHBsYWluXGYxXGZzMjBc bGFuZzEwMzNcaGljaFxm SDncKwZnQGSrHDheN6cb KsStY4QxOHSpAqNpTV9y M2BtGY1hMxNjAkEqGZFu TPEWFZPsNPVOH2FGPVRt DGAIA8kbRPKnCo8eW1Dl WH2sTgIhMuRbZGZmJ9Ml HUXdAmhKZ5ghXVMqWLYR XHBsYWluXGYxXGZzMjBc bGFuZzEwMzNcaGljaFxm JTxfKeWqESFdLPlzQ3wd XlFfM7AtIUMgXaBqrTMh B1wfQ0NgfIkoRBFsCPtn bWQwBLRwoBZcPAR2eMBm cwPhuVyseZlkqO4sGrOj ZnMyNFxwbGFpblxmMVxm czIwXGxhbmcxMDMzXGhp P2hmXdJxNMYdfZkbZEcu v9TxTMVdZHChMpacizMc IDEwLzkvMjAyMFxwYXIg QGDkGM5kVFOxZLQjIOlx XGYxXGZzMjBcbGFuZzEw MzNcaGljaFxmMVxkYmNo NBJgKUzsS0okMpOtX4Hx NTHsVzXhfWZwB8uwS9Cu bFxwYXJkXGludGJsXHNz kQPuWFB3fQMwobFfcGky rZtkdJ0uPwZsPiZyUNhr bGFpblxmMVxmczIwXGxh ymupMWQnCBxrO0zvPuVh XBNnjRhdRMczq0WsWNTh XGNmMlxmczIwIDEwLzIz LzIwMjBccGFyIDEwLzI3 OaXlJnNejVlqmH4tBzEk BkUtAOreCJ3jCPJmZ8md iYDgFKVqEHByR4ysNqTh wZ8gkHkvCUynDzHbWoCx MFxsdHJjaFxjZWxsXGlu jVIyMAEhg6ayEKGsWWCw iXDcZGS0bLBujoMmvQup lTggmA2xCoXoTmZwRVys bGFpblxmMVxmczIwXGxh bdbfQUHoWKivK5zrLcXv KQEemIlgOSqsa6AlUGQx XGZzMjBccGFyfQ== Diagnosis (test code = [id number] 34) YWWgy8ikg7VneCGauPKr MKctaCTywlHqph47eSF6 hB10YT1eTMJpKkG8GZLz xmO6Hjj6YLGaAVJjmUFk D239w9ruf1drnfGtkZI7 fVxwYXJkXHBsYWluXGZz KbSmGJ6eUSangzZtQL53 bOJaNYRxv2vjXHGzSEVw QMCrcaJcgVAvPJNhjD0n WjmgN7umJINJHpByXFI0 IfD5PKCxwMzwSMbxHUBu GTs1VLhPXgGqFiNvDNGN WDEwLCBDSyBBRTEvQUUz FLHZE5eQOnvtT2t6TXIV L9ChEXHWNIe3KIDMSOLe VSmlT87wlFFndXHjAB6w IDEwLzkvMjAyMCkgTmFz VUuqXT2lx3OqDDFop3og IHNoYXZlOlxwYXJccGFy XGxpNzIwXGxpbjcyMCBD S51HHNGKXU1NYZcPFFfc PuQUFEtrE1NYLOHNEUUD GF1DXREoE2tVSVHLLGQU UiBDRUxMIEZFQVRVUkVT NQENYeRJVD5DZETESROY M5XFUBQNCQbOIDLultZK m9AsT3zssXCpLBYniSti iIUij3BgRLRnc0ufKFOu oaTvON81IEK2UXLru2M3 YFBvEFgnxw3rCBGljcAY TDXeH95mpXEssWjoGSXg bGkwXGxpbjBccGFyIENB HA8QV8hiJAG1 Comment (test code = c1inoSNkNWFcaHG1CMJd 9835) EUGwc2wjy6EjhLOvvCYq ZUmilXGvrxFwdf10yGS3 cY97GI1lLZFfEcZ1UHQf ysK3Ukk2FKMdPMBrkFCk M780h9vog3vsyjXzzQX7 fVxwYXJkXHBsYWluXGZz NdHnZD0wX4JlsKgbtwPy x7xradAtIW3yv4CeSXFr st8jfREeqxY9eD2dRG1g IGNsZWFyIGNlbGxzIGRl mC7qk0GeNACwxbdftV4i AKYpiQLyQAF2jPjfWAQb QNHhA5R3aONhHKEixCe8 b1SaLwNlsQo0jhVgJOhs xXhzf2Jjwss5rE2dLOHh dOUcyn8tqPJ2ePFtpuH6 qG4uIxTSufVar7UdO3mo lWMdJMSjzMyliXRuv1Fw KHZqy6opOUadVZRzEXXu bnQuIFRoZSBzdWJtaXR0 KHTyeG6huS8poNpnuE7k aGVtaWNhbCBzdHVkaWVz LCByZXZpZXdlZCBoZXJl EJWmdV73TBNkRBYyuQNq iH9qUHmrF8JppSQnTNVd ZUNya1x6tFZyCZEvnfJg FhFgBXCHTCRlO4ZLMxdg RH3pZNHVGR8NXDOzBBPk MJuxqYj6GNGii3QiK1vl FBhoK8e5ZOAOP1zcNFsi ZuZXOAWPJKz0CUVsozQp V7OtNE0bxZDhFFPrayZG ZICcmZadcnHuEB9tgVBz kCSsazL2RGXfXPVscGIr g7UeSVL6gbBfRECad3Ip DRcevJIbu4gdu0LoZ5na hXfqRQbbp9V1OFfzos3g KPykPRB9hC3rOTIppJtu ANXsRJMrm4AamOg1VDGj u7DfWjNtIUL3LEGnh2Fq kHl3KFEui5m7qJLaJGLl ciBFTUEsIGFuZCBuZWdh lLz3ZKKvn3KcHHMxmV5w mBugpO8gZK7rEVRRRH4r EEqpAN37WZPklHupLyzh HRrxL7AzPDVxANmzrEEg cHJldGVkIGFzIGNvbnNp d3ZfrmAbl3d2nEAaARPj yBRaHGcaUVOvfxOyld1x GCE2eTTyFSVsHXSaVSZb vRpmO5papuaiMvGttHIt QLAmzsWVmQedPEYll0Tn c1HoSBU6rWSgOSIfTF9k ZTKss2U1r5ScPLIgoJY5 zQOwPUTfaGL1f9IvwOeo wI6voAZqYKH8rWJ7DWPs gtLjzvLbE3JlPKfyGBS3 Ordinary Seaman(s) (test code g2mlxXWzIZInzWZ1XKBc = 9863) BMVor5qit0XcuPXfxIWe WLexlCXuwaAyen49nQK8 cT00VU2oGNSiDxL6ZURl myG4Sos5JXHjXGZjnRZs N936f8eye8cnjlSrfVA0 fVxwYXJkXHBsYWluXGZz MjAgVkdQLCBKTEMsIERJ LCBQTiwgUFBBXHBhcn0= Disclaimer (test code = c1fhvNAyLDIxpLOyDoSz 9844) GDEzGZFuu8gjWPVepFQh ZzEwMzNcZnRuYmpcdWMx EGIgOyCbz5jac656qPPb c4hfNDNsZgH9aNXpYYPx fASgW330OIMrJFzms4tu q8DmDPEdxMAvj4B7MIEW stetwJs1tQztB49qr2V2 TaccN2kdAREcZKJsO9Ro QK6zHERfLvz1WBA8XCO2 CRSbJOHlJ3JoUI5cXBUr rQPcSKn1f3hzzFoxBKGb OOQ4j6cgHJirxlNpRM5k uc1yyRd0c4xlarPcWSMh JIHxfUNEJABbU1VgeAcl Bj6ngWs2vRzuNcguTXO6 Nyp7RZ6sta18bff7yDvw XBByuuhmGhR3MHynLWJs fegqKXc3FFhsUNNabQZ6 TNYwwTLvW1DgYJWaNG3k bwq4BDQ5SYeiYNPlLtM3 NDBcaGVhZGVyeTcyMFxm t594BUA4GgIlJC4jU5Wm v1C3qZ9mwKUzEIKvuPIy DuPkDVNqht3blIVbDThq j8LyAME5dgK9zFNzoXVx JEFzBM96Reibl0BxFlsd YHB1DBIxpjGff4Jui3lt NfQzivYeJ0owB8NtZVXw NBUzSZJcWiSmuyVpt4Ot v6DyhDZjlBu0r8qgXHNa LPCgkRdxo1ykBFR3USMk U0R3nFAsf3qtLClhONFk tGR1npW8FVAirVOdS3Uw fM0mJOHoVH5dyns5c1po LAD4MOgrYZRiGmJ2ymZ9 NDBcaGVhZGVyeTcyMFxm p428YGC9IlCcDOOhp4Jn K6VskQivH53lxPgyD85r PXGcdAvylW4jdOuuqU1w ZjBcZnMyNFxxbFxwbGFp apfhWKtsvuX4VBiwtazt CPAeSUnsN0svCqMsZOZb yJqcGGtha8EfBTFvNYBt UypesyU1QECFw29fPVLc n4RaVZLoeM0dfNPdTHvz ygNmcFU7GYyrjgRsCjUh cnYlQKRstZ9gXSInMS2v HWYlthEmpb5pitLoFIDk DFNsT2HkwagdnZzetfDl FUPqkq0uhgObRPQ2LQSL KM7HRBHjFHWqp24iKMKk iHuqfK9xsGFdocZlJMDx s3BmiE7wkJWISHFbJ3lr IK6bBMmof8HtoCSosFGv rXP4MJPge0HgSfOxixMw lAPsyJZvE3DmoUpeP9il JOAaBUOvzgYunHSyg8An RZGiiYZ4pMQtHH7MOtBZ o07gSFHbXSHOerHnEGEq kThnwPN8gdT9zP9wWiLS ZiBhcHBsaWNhYmxlLCBj d877cn2dvpI3CUUrAGIh dhvdy0JzMFGnFENziM96 ARLaAOQbao4bpwvdnEPk huHzQ2Ydxgt7sU7uHMSf YWluXGYxXGZzMjJcbGFu ZzEwMzNcaGljaFxmMVxk FsSmQPGhNFxvA4etHrQk ZnMyMlxwYXJ9 MD Rasmussen- XR CHEST 1 [id number] 23:25:00 Patient Name: CASTRO SOLITARIO Unit No: [id number] EXAMS: CPT CODE: [id number] XR CHEST 1 V 70257 Portable chest one view. HISTORY: Rule out pneumothorax COMMENT: The lungs are clear and normally expanded. The heart and pulmonary vasculature is normal. Visualized soft tissues and skeletal structures are unremarkable. No evidence of pneumothorax. IMPRESSION: No active disease in the chest. at 2325 Reported and signed by: Monty Prieto MD CC: Too Mitchell MD Technologist: ROBEL DUBOIS. RT(R) Transcribed D/ (3385) t.SHAYR.GVG [facility] NAME: CASTRO SOLITARIO [address] [facility] [address] PHYS: DOCUD - Too Mitchell MD : 1935 AGE: 84 SEX: M [place], [place] [address] LOC: GORGE PHONE #: [phone] EXAM DATE: 09/17/2019 STATUS: [facility] FAX #: [phone] RAD #: [id number] D/C DT PAGE 1 Signed Report Patient Name: CASTRO SOLITARIO Unit No: [id number] EXAMS:CPT CODE: [id number] XR CHEST 1 V 31327 <Continued> Orig Print D/T: S: 09/19/2019 (5046) [facility] NAME: CASTRO SOLITARIO [address] [facility] PHYS: DOCUD - Doctor,Too Sullivan MDDOB: 1935 AGE: 84 SEX: M [place], [place] [address] LOC:GORGE PHONE #: [phone] EXAM DATE: 09/17/2019 STATUS: [facility] FAX #: RAD #: [id number] D/C DT PAGE 2 Signed Report- XR FLUORO FOR SPINE [id number] 15:49:00 Patient Name: CASTRO SOLITARIO Unit No: [id number] EXAMS: CPT CODE: [id number] XR FLUORO FOR SPINE INJ 64941 THORACIC TRANSFORAMINAL INJECTION REFERRING PHYSICIAN: PREOPERATIVE DIAGNOSIS: Degenerative thoracic disc disease POSTOPERATIVE DIAGNOSIS: Left thoracic radiculopathy PROCEDURES PERFORMED: Fluoroscopically guided needle localization of the left T5 spinal nerve with transforaminal epidural steroid injection/injections. 2. Transforaminal epidurogram/epidurograms at left T5. FINDINGS: Good spread T4-T7 100% relief ANTIBIOTIC: Cefazolin ESTIMATED BLOOD LOSS: Minimal ANESTHESIA: (TIVA) Total intravenous anesthetic (patient intolerant to sedatives and hypnotics) COMPLICATIONS: None DETAILS OF PROCEDURE: After obtaining stable vital signs, informed consent and IV access, with no known contraindications to proceeding, the patient was taken to the fluoroscopy suite and placed in a prone position with all extremities padded and appropriate monitors placed. A sterile prep and drape wasperformed over the thoracic spine. Using fluoroscopic visualization at each level the insertion site was marked for a paravertebral approach to the foramen.It should be noted that the needle was medial to the head of the rib. Using standard technique, a 27 gauge needlewas advanced to the base of the pedicle. It should be noted that the needle was always medialto the head of the rib. In AP view, final positioning was obtained outside the 6 on theclock position on the pedicle. Then, 1 ml of Isovue-300 contrast was injected to produce the e pidurograms. No paresthesias were elicited with needle insertion or injection and there were no signs of intravascular or intrathecal uptake. Then, 0.5 ml of 4% lidocaine was injectedas a test dose with no signs of intravascular or intrathecal uptake. Next, 1 ml of 4% lidocaine and 10 mg of Decadron was injected incrementally with frequent negative aspirations. There were no signs of intravascular or intrathecal uptake. Each subsequent level was done usingthe same technique and medications. The patient's vital signs remained stable. The patient was taken to the PACU in good condition. at 1549 Reported and signed by: Too Mitchell M.D. [facility] NAME: CASTRO SOLITARIOIN [address] [facility] PHYS: Too Blankenship MD [place] [address] : 1935 AGE: 84 SEX: M LOC: GORGE PHONE #: [phone] EXAM DATE: 09/17/2019 STATUS: [facility] FAX #: [phone] RAD #: [id number] D/C DT PAGE 1 Signed Report (CONTINUED) Patient Name: CASTRO SOLITARIOIN Unit No: [id number] EXAMS: CPT CODE: [id number] XR FLUORO FOR SPINE INJ 59533 <Continued> CC: Too Mitchell MD Technologist: YAMILE MALIN RT(R) Transcribed D/ (5458) [facility] NAME: SOLITARIOCASTRO RODRIGUEZ [address] [facility] PHYS: Too Blankenship MD [place] [address] : 1935 AGE: 84 SEX:M LOC: GORGE PHONE #: [phone] EXAM DATE: 09/17/2019 STATUS: REG [facility] FAX #: [phone] RAD #: [id number] D/C DT PAGE 2 Signed Report Patient Name: CASTRO SOLITARIO MICHAEL Unit No: [id number] EXAMS: CPT CODE: [id number] XR FLUORO FOR SPINE INJ 26283 <Continued> Orig Print D/T: S: 09/17/2019 (5219) [facility] NAME: ELADIOCASTRO RODRIGUEZ [address] [facility] PHYS: Too Blankenship MD [place], [place] [address] : 1935 AGE: 84 SEX: M LOC: GORGE PHONE #: [phone] EXAM DATE: 09/17/2019STATUS: [facility] ROSARIO FAX #: [phone] RAD #: [id number] D/C DT PAGE3 Signed Report
[2021-03-01] MEDS ORDERED: dexAMETHasone 4 MG/ML VIAL ONE (13:09)
--- NOTE | 2021-03-01 13:27 | RAD REPORT ---
EXAM DESCRIPTION: CT - Soft Tissue Neck W/Contr CLINICAL HISTORY: swelling, difficulty swallowing COMPARISON: No comparisons TECHNIQUE All CT scans are performed using dose optimization technique as appropriate and may includ e automated exposure control or mA/KV adjustment according to patient size. FINDINGS: Nasopharyngeal tissues are normal in appearance. Fossa Rosenmller are normal. Parapharyngeal fat triangles are symmetric. Tongue base structures are normal. Epiglottis and aryepiglottic folds are normal. Piriform sinuses are well aerated. The vocal cords are normal in appearance. Salivary glands are normal in appearance. Upper lung ordonez are clear. Included intracranial contents are unremarkable. Multilevel cervical spondylosis. Partial fusion across C2-C3 is presumably developmental. Varying deg halle of neural foraminal narrowing noted. Left maxillary sinus mucosal thickening is present. IMPRESSION: No acute soft tissue abnormality within the neck. No specific findings to explain dyspha kirstie.
--- NOTE | 2021-03-01 15:24 | ER ---
Nurse's Notes [facility] Name: Serjio Hendricks Age: 85 yrs Sex: Male : 1935 Arrival Date: 03/01/2021 Time: 10:07 Bed Treatment Private MD: Gael Alanis C Diagnosis: Acute pharyngitis, unspecified Presentation: 03/01 10:40 Chief complaint: Patient states: sore throat and difficulty swallowing x 2 days. Went sv to urgent care (-) COVID and strep, sent home with Augmentin but it having difficulty swallowing the pill. Coronavirus screen: Client denies travel out of the [place] in the last 14 days. At this time, the client does not indicate any symptoms associated with coronavirus-19. Ebola Screen: No symptoms or risks identified at this time. Risk Assessment: Do you want to hurt yourself or someone else? Patient reports no desire to harm self or others. Onset of symptoms was February 27, 2021. 10:40 Method Of Arrival: Ambulatory sv 10:40 Acuity: JOSE JUAN 4 sv 10:42 Initial Sepsis Screen: Does the patient meet any 2 criteria? No. Patient's initial sv sepsis screen is negative. Does the patient have a suspected source of infection? No. Patient's initial sepsis screen is negative. Triage Assessment: 10:44 General: Appears in no apparent distress. comfortable, Behavior is calm, cooperative, sv appropriate for age. Pain: Complains of pain in throat. Neuro: Level of Consciousness is awake, alert, obeys commands, Gait is steady. Respiratory: Respiratory effort is even, unlabored. Historical: - Allergies: 10:42 No Known Allergies; sv - Immunization history:: Client reports receiving the 2nd dose of the Covid vaccine, Client reports receiving the 1st dose of the Covid vaccine. - Social history:: Smoking status: Patient denies any tobacco usage or history of. Screenin:30 Abuse screen: Denies threats or abuse. Denies injuries from another. Nutritional ld1 screening: No deficits noted. Tuberculosis screening: No symptoms or risk factors identified. Fall Risk None identified. Assessment: 12:30 General: Appears in no apparent distress. comfortable, Behavior is calm, cooperative, ld1 appropriate for age. Pain: Denies pain. Neuro: Level of Consciousness is awake, alert, obeys commands, Oriented to person, place, time, situation, Appropriate for age. Cardiovascular: Capillary refill < 3 seconds Patient's skin is warm and dry. Respiratory: Airway is patent Respiratory effort is even, unlabored, Respiratory pattern is regular, symmetrical, Breath sounds are clear bilaterally. GI: Abdomen is flat, non-distended. : No signs and/or symptoms were reported regarding the genitourinary system. EENT: Throat is reddened Reports difficulty swallowing since X 2 days. Derm: No signs and/or symptoms reported regarding the dermatologic system. Musculoskeletal: No signs and/or symptoms reported regarding the musculoskeletal system. 14:03 Reassessment: Patient appears in no apparent distress at this time. No changes from ld1 previously documented assessment. Patient and/or family updated on plan of care and expected duration. Pain level reassessed. 15:07 Reassessment: Patient appears in no apparent distress at this time. Patient is alert, ld1 oriented x 3, equal unlabored respirations, skin warm/dry/pink. Vital Signs: 10:42 BP 130 / 81; Pulse 81; Resp 18; Temp 98.2; Pulse Ox 98% ; Weight 86.64 kg; Height 5 ft. sv 6 in. (167.64 cm); 12:30 BP 156 / 92; Pulse 86; Resp 18; Temp 98.5(O); Pulse Ox 95% on R/A; Weight 86 kg; Height ld1 5 ft. 8 in. (172.72 cm); Pain 0/10; 14:03 BP 148 / 86; Pulse 82; Resp 18; Pulse Ox 96% on R/A; ld1 15:07 BP 144 / 89; Pulse 88; Resp 18; Pulse Ox 95% on R/A; ld1 12:30 Body Mass Index 28.83 (86.00 kg, 172.72 cm) ld1 ED Course: 10:07 Patient arrived in ED. am2 10:07 Gael Alanis MD is Private Physician. am2 10:40 Arm band placed on. sv 10:42 Triage completed. sv 12:16 [facility]. jm 12:16 Kalin Rasmussen MD is Attending Physician. jmm 12:30 Patient has correct armband on for positive identification. Bed in low position. Call ld1 light in reach. Side rails up X2. Pulse ox on. NIBP on. Door closed. Noise minimized. Warm blanket given. 12:30 No provider procedures requiring assistance completed. ld1 12:56 COVID-19 : Document "Date of Symptom Onset" if Symptomatic. Sent. ld1 12:57 Inserted saline lock: 20 gauge in left antecubital area, using aseptic technique. ld1 13:18 CT Soft Tissue Neck W/contr In Process Unspecified. EDMS 13:24 Aysha Webber, RN is Primary Nurse. emily 15:23 Gael Alanis MD is Referral Physician. jmm 15:37 IV discontinued, intact, bleeding controlled, No redness/swelling at site. ld1 Administered Medications: 12:56 Drug: Decadron - Dexamethasone 10 mg Route: IVP; Site: left antecubital; ld1 13:32 Follow up: Response: No adverse reaction ld1 Outcome: 15:23 Discharge ordered by MD. m 15:36 Discharged to home ambulatory. ld1 15:36 Condition: stable 15:36 Condition: good 15:36 Discharge instructions given to patient, Instructed on discharge instructions, follow up and referral plans. Demonstrated understanding of instructions, follow-up care. 15:38 Patient left the ED. ld1 Signatures: Dispatcher [employer] EDMS Doretha Romero RN Charlie Lobo PA PA jmm Moreno, Amanda am2 Brown, Zipporah, RN RN zb Dibbern, Lauren, RN RN ld1
--- NOTE | 2021-03-01 15:24 | EDPHYS ---
Physician Documentation [facility] Name: Serjio Hendricks Age: 85 yrs Sex: Male : 1935 Arrival Date: 03/01/2021 Time: 10:07 Bed Treatment Private MD: Gael Alanis C ED Physician Kalin Rasmussen HPI: 03/01 12:19 This 85 yrs old Male presents to ER via Ambulatory with complaints of Sore jmm Throat, Difficulty Swallowing. 12:19 The patient presents with sore throat. The patient describes throat pain as burning, jmm raw. Onset: The symptoms/episode began/occurred gradually, 2 day(s) ago. Associated signs and symptoms: Pertinent negatives fever. 85-year-old male that presents emergency department with complaints of congestion, and drainage into the throat. Patient states having difficulty swallowing. Patient states irritation sometimes leads to vomiting. . Historical: - Allergies: 10:42 No Known Allergies; sv - Immunization history:: Client reports receiving the 2nd dose of the Covid vaccine, Client reports receiving the 1st dose of the Covid vaccine. - Social history:: Smoking status: Patient denies any tobacco usage or history of. ROS: 12:19 Constitutional: Negative for fever, chills, and weight loss. jmm 12:19 ENT: Positive for sinus congestion, sore throat. 12:19 All other systems are negative. Exam: 12:19 Constitutional: This is a well developed, well nourished patient who is awake, alert, jmm and in no acute distress. Head/Face: atraumatic. Eyes: EOMI, no conjunctival erythema appreciated 12:19 Neck: Trachea midline, Supple Chest/axilla: Normal chest wall appearance and motion. Cardiovascular: Regular rate and rhythm. No edema appreciated Respiratory: Normal respirations, no respiratory distress appreciated Abdomen/GI: Non distended, soft Back: Normal ROM Skin: General appearance color normal MS/ Extremity: Moves all extremities, no obvious deformities appreciated, no edema noted to the lower extremities Neuro: Awake and alert, normal gait Psych: Behavior is normal, Mood is normal, Patient is cooperative and pleasant 12:19 ENT: Posterior pharynx: erythema, that is mild. Vital Signs: 10:42 BP 130 / 81; Pulse 81; Resp 18; Temp 98.2; Pulse Ox 98% ; Weight 86.64 kg; Height 5 ft. sv 6 in. (167.64 cm); 12:30 BP 156 / 92; Pulse 86; Resp 18; Temp 98.5(O); Pulse Ox 95% on R/A; Weight 86 kg; Height ld1 5 ft. 8 in. (172.72 cm); Pain 0/10; 14:03 BP 148 / 86; Pulse 82; Resp 18; Pulse Ox 96% on R/A; ld1 15:07 BP 144 / 89; Pulse 88; Resp 18; Pulse Ox 95% on R/A; ld1 12:30 Body Mass Index 28.83 (86.00 kg, 172.72 cm) ld1 MDM: 12:19 Patient medically screened. sury 15:22 Data reviewed: vital signs, nurses notes. Counseling: I had a detailed discussion with [facility] the patient and/or guardian regarding: the historical points, exam findings, and any diagnostic results supporting the discharge/admit diagnosis, radiology results, the need for outpatient follow up, to return to the emergency department if symptoms worsen or persist or if there are any questions or concerns that arise at home. ED course: Patient is able to tolerate p.o. in the ED. Patient advised to follow-up with ENT/PCP for evaluation otherwise given strict return precautions. Patient understood and agrees plan of care.. 03/01 12:27 Order name: COVID-19 : Document "Date of Symptom Onset" if Symptomatic. [facility] 03/01 12:38 Order name: CT Soft Tissue Neck W/contr; Complete Time: 13:35 [facility] 03/01 13:42 Order name: CREATININE WHOLE BLOOD; Complete Time: 13:46 [facility] 03/01 14:29 Order name: SARS-COV-2 RT PCR; Complete Time: 14:31 [facility] 03/01 12:38 Order name: Saline Lock; Complete Time: 12:56 [facility] Administered Medications: 12:56 Drug: Decadron - Dexamethasone 10 mg Route: IVP; Site: left antecubital; ld1 13:32 Follow up: Response: No adverse reaction ld1 Disposition: 03/02 05:23 Co-signature as Attending Physician, Kalin Rasmussen MD I agree with the assessment and [facility] plan of care. Disposition Summary: 03/01/21 15:23 Discharge Ordered Location: Home [facility] Condition: Stable [facility] Diagnosis - Acute pharyngitis, unspecified [facility] Followup: [facility] - With: Gael Alanis MD - When: 2 - 3 days - Reason: Recheck today's complaints, Continuance of care, Re-evaluation by your physician Discharge Instructions: - Discharge Summary Sheet [facility] - Pharyngitis [facility] Forms: - Medication Reconciliation Form [facility] - Thank You Letter jm - Antibiotic Education jm - Prescription Opioid Use [facility] Signatures: Dispatcher [employer] EDMS Doretha Romero, RN Kalin Ho MD MD cha Mickail, Joel, PA PA [facility] Sumi Colin RN RN ld1 Corrections: (The following items were deleted from the chart) 03/01 13:34 12:28 CORONAVIRUS ordered. [facility] EDFL
[2021-03-01 15:49] VITALS: TEMP 98.5
[2021-03-01 15:52] VITALS: BP 144/89; O2SAT 95
== END 2021-03-01 15:38 | disposition home or self-care (01) ==
LOC: ER 09:58
DX: J02.9 Acute pharyngitis, unspecified (principal); Z20.822 Contact with and (suspected) exposure to COVID-19
CPT/HCPCS: 82565; 70491; 96374; 99284; U0003; Q9967; J1100